=== PATIENT | female | born 1990 | race American Indian/Alaskan Native ===

== ENCOUNTER 2018-05-12 19:10 | Emergency (ER) | payer SELFPAY ==
[2018-05-12 19:56] VITALS: BP 146/102
[2018-05-12 22:57] LABS: Bacteria,Urine 4+ /HPF (Negative); Bilirubin,Urine NEG (Negative); Blood,Urine NEG (Negative); Color,Urine Amber (Yellow); Hyaline Casts,Urine 20 /LPF; Mucus,Urine 3+ /HPF; Sperm,Urine 2+ /HPF (NP); Urobilinogen,Urine < 2.0 mg/dL (<2.0)
--- NOTE | 2018-05-13 00:33 | Emergency Department Report ---
ED Female HPI - General Chief complaint: Urogenital-Female Stated complaint: VAGINAL BURNING Time Seen by Provider: 05/12/18 23:49 Source: patient Mode of arrival: Ambulatory Limitations: No Limitations - History of Present Illness Initial comments: Patient is a 28-year-old female who presents to ED complaining of burning with urination and vaginal discharge 3 days. Patient states that it has become painful to urinate due to the burning sensation whenever she urinates. She admits vaginal discharge and vaginal H and area she describes that she discharge as thick and clumpy. Patient reports that she has irregular cycles of the past 10 years. She denies pelvic pain, fever, abdominal pain, nausea vomiting. Patient states that she is eversion and has not had sexual intercourse so she is not worried about STDs. MD Complaint: vaginal discharge - Related Data Previous Rx's Medication Instructions Recorded Last Taken Type Fluconazole [Diflucan] 150 mg PO DAILY #2 tablet 05/13/18 Unknown Rx Sulfamethoxazole/Trimethoprim 1 each PO BID #14 tablet 05/13/18 Unknown Rx [Bactrim DS TAB] metroNIDAZOLE [Metronidazole] 500 mg PO ONCE #4 tablet 05/13/18 Unknown Rx Allergies Allergy/AdvReac Type Severity Reaction Status Date / Time perfum soap Allergy Rash Uncoded 05/12/18 19:21 ED Review of Systems ROS: Stated complaint: VAGINAL BURNING Other details as noted in HPI Comment: All other systems reviewed and negative ED Past Medical Hx - Past Medical History Previous Medical History?: No - Surgical History Past Surgical History?: No - Social History Smoking Status: Never Smoker Substance Use Type: None - Medications Home Medications: Home Medications Medication Instructions Recorded Confirmed Last Taken Type Fluconazole [Diflucan] 150 mg PO DAILY #2 tablet 05/13/18 Unknown Rx Sulfamethoxazole/Trimethoprim 1 each PO BID #14 tablet 05/13/18 Unknown Rx [Bactrim DS TAB] metroNIDAZOLE [Metronidazole] 500 mg PO ONCE #4 tablet 05/13/18 Unknown Rx ED Physical Exam - General Limitations: No Limitations General appearance: alert, in no apparent distress - Head Head exam: Present: atraumatic, normocephalic - Eye Eye exam: Present: normal appearance - ENT ENT exam: Present: mucous membranes moist - Neck Neck exam: Present: normal inspection - Respiratory Respiratory exam: Present: normal lung sounds bilaterally. Absent: respiratory distress - Cardiovascular Cardiovascular Exam: Present: regular rate, normal rhythm. Absent: systolic murmur, diastolic murmur, rubs, gallop - GI/Abdominal GI/Abdominal exam: Present: soft, normal bowel sounds - Extremities Exam Extremities exam: Present: normal inspection - Back Exam Back exam: Present: normal inspection - Neurological Exam Neurological exam: Present: alert, oriented X3 - Psychiatric Psychiatric exam: Present: normal affect, normal mood - Skin Skin exam: Present: warm, dry, intact, normal color. Absent: rash ED Course Vital Signs 05/12/18 05/12/18 19:54 20:00 Temperature 98.7 F 98.7 F Pulse Rate 83 83 Respiratory 16 16 Rate Blood Pressure 146/102 146/102 O2 Sat by Pulse 94 97 Oximetry ED Medical Decision Making - Medical Decision Making 28-year-old female presents with vaginitis/UTI Urinalysis positive for bacteria, yeast, leukocyte esterase, and elevated white count Discussed this findings with the patient. Discussed the patient is begun on on antibiotics as well as treatment for yeast infection. Discussed the patient follow-up with the [facility] [employer]. Vital signs are normal patient is in no acute distress Critical care attestation.: If time is entered above; I have spent that time in minutes in the direct care of this critically ill patient, excluding procedure time. ED Disposition Clinical Impression: UTI (urinary tract infection), Vulvovaginal candidiasis Disposition: TO HOME OR SELFCARE Is pt being admited?: No Does the pt Need Aspirin: No Condition: Stable Instructions: Vulvovaginal Candidiasis (ED), Vaginitis (ED), Urinary Tract Infection in Women (ED) Additional Instructions: Make sure to follow up with the primary care physician as discussed. Take all your medications as you've been prescribed. If you have any worsening symptoms or develop new symptoms please return to ED immediately. Prescriptions: Sulfamethoxazole/Trimethoprim [Bactrim DS TAB] 1 each PO BID #14 tablet Fluconazole [Diflucan] 150 mg PO DAILY #2 tablet metroNIDAZOLE [Metronidazole] 500 mg PO ONCE #4 tablet Referrals: JAKOB HEARN MD [Primary Care Provider] - 3-5 Days Forms: Accompanied Note, Work/School Release Form(ED) Time of Disposition: 00:41
== END 2018-05-13 00:50 | disposition home or self-care (01) ==
LOC: ED 19:10
DX: N39.0 Urinary tract infection, site not specified (principal); B37.3 Candidiasis of vulva and vagina; Z91.89 Other specified personal risk factors, not elsewhere classified
CPT/HCPCS: 81001; 99283

== ENCOUNTER 2018-11-27 18:34 | Emergency (ER) | payer SELFPAY ==
[2018-11-27 19:14] VITALS: BP 175/93
--- NOTE | 2018-11-27 20:33 | Emergency Department Report ---
ED General Adult HPI - General Chief complaint: Dental/Oral Stated complaint: POSS STROKE Time Seen by Provider: 11/27/18 20:16 Source: patient Mode of arrival: Ambulatory Limitations: No Limitations - History of Present Illness Initial comments: Patient is a 28-year-old female who presents to the emergency room with complaints of left facial droop that began 4 days ago. Patient states that before the droop. She felt a tingling sensation on the left side of her tongue but that has since resolved. Patient states that approximately 2 weeks ago she had cough and cold symptoms that self resolved. She states that she also has left lower toothache from where she cracked her tooth a couple weeks ago. Patient denies any fever, chills, nausea, vomiting, vision changes, numbness, unilateral weakness, WELSH. Patient's sister states she has a past medical history of mild developmental disability. denies any allergies to medications. - Related Data Previous Rx's Medication Instructions Recorded Last Taken Type Fluconazole [Diflucan] 150 mg PO DAILY #2 tablet 05/13/18 Unknown Rx Sulfamethoxazole/Trimethoprim 1 each PO BID #14 tablet 05/13/18 Unknown Rx [Bactrim DS TAB] metroNIDAZOLE [Metronidazole] 500 mg PO ONCE #4 tablet 05/13/18 Unknown Rx predniSONE [Deltasone] 60 mg PO QDAY 7 Days #21 tab 11/27/18 Unknown Rx valACYclovir [Valtrex] 1,000 mg PO TID 7 Days #42 tab 11/27/18 Unknown Rx Allergies Allergy/AdvReac Type Severity Reaction Status Date / Time perfum soap Allergy Rash Uncoded 05/12/18 19:21 ED Review of Systems ROS: Stated complaint: POSS STROKE Other details as noted in HPI Comment: All other systems reviewed and negative ED Past Medical Hx - Past Medical History Previous Medical History?: Yes Additional medical history: Morbid Obesity - Surgical History Past Surgical History?: No - Social History Smoking Status: Never Smoker Substance Use Type: None - Medications Home Medications: Home Medications Medication Instructions Recorded Confirmed Last Taken Type Fluconazole [Diflucan] 150 mg PO DAILY #2 tablet 05/13/18 Unknown Rx Sulfamethoxazole/Trimethoprim 1 each PO BID #14 tablet 05/13/18 Unknown Rx [Bactrim DS TAB] metroNIDAZOLE [Metronidazole] 500 mg PO ONCE #4 tablet 05/13/18 Unknown Rx predniSONE [Deltasone] 60 mg PO QDAY 7 Days #21 tab 11/27/18 Unknown Rx valACYclovir [Valtrex] 1,000 mg PO TID 7 Days #42 tab 11/27/18 Unknown Rx ED Physical Exam - General Limitations: No Limitations General appearance: alert, in no apparent distress - Head Head exam: Present: atraumatic, normocephalic - Eye Eye exam: Present: normal appearance, PERRL, EOMI - ENT ENT exam: Present: normal orophraynx, mucous membranes moist, other (cracked molar on the left lower jaw, no induration, no gum inflammation, no sign of dental abscess, uvula is midline, no uvular edema, no facial edema) - Respiratory Respiratory exam: Present: normal lung sounds bilaterally. Absent: respiratory distress, rales, rhonchi, stridor, chest wall tenderness, accessory muscle use, decreased breath sounds, prolonged expiratory - Cardiovascular Cardiovascular Exam: Present: regular rate, normal rhythm, normal heart sounds. Absent: systolic murmur, diastolic murmur, rubs, gallop - Neurological Exam Neurological exam: Present: alert, oriented X3, normal gait, other (left sided mouth droop, unable to raise the left eyebrow, unable to wrinkle the left forehead, unable to fully close the left eye, sensation intact, normal finger to nose, normal heel to weldon, equal videotape recording engineer strength, 5/5 strength in the BUE/BLE) - Psychiatric Psychiatric exam: Present: normal affect, normal mood - Skin Skin exam: Present: warm, dry, intact. Absent: rash ED Course Vital Signs 11/27/18 19:11 Temperature 98.5 F Pulse Rate 93 H Respiratory 18 Rate Blood Pressure 175/93 O2 Sat by Pulse 95 Oximetry ED Medical Decision Making - Medical Decision Making Patient is a 28-year-old female who presents to the emergency room with complaints of left facial droop that began 4 days ago. Patient states that before the droop. She felt a tingling sensation on the left side of her tongue but that has since resolved. Patient states that approximately 2 weeks ago she had cough and cold symptoms that self resolved. She states that she also has left lower toothache from where she cracked her tooth a couple weeks ago. Patient denies any fever, chills, nausea, vomiting, vision changes, numbness, unilateral weakness, WELSH. Patient's sister states she has a past medical history of mild developmental disability. denies any allergies to medications. vitals with elevated blood pressure otherwise normal, discussed blood pressure with pts sister and advised for her to be seen by a primary care provider, keep a blood pressure log, and eat a low sodium diet. on examination: cracked molar on the left lower jaw, no induration, no gum inflammation, no sign of dental abscess, uvula is midline, no uvular edema, no facial edema, left sided mouth droop, unable to raise the left eyebrow, unable to wrinkle the left forehead, unable to fully close the left eye, sensation intact, normal finger to nose, normal heel to weldon, equal videotape recording engineer strength, 5/5 strength in the BUE/BLE. examination consistent with bells palsy as pt has forehead involvement which is in the distribution of the facial nerve. given prescription for valcyclovir and prednisone. advised pt and pt sisters to please take medication as prescribed. Please follow up with a primary care doctor and dentist in the next 3-5 days. given list of community resources. please use eye drops in the eye to keep well lubricated. may tape the eye shut just at night if eye begins drying. return to the emergency room for any new or worsening symptoms. - Differential Diagnosis Bowers Palsy, CVA, encephalitis, TIA, shingles Critical care attestation.: If time is entered above; I have spent that time in minutes in the direct care of this critically ill patient, excluding procedure time. ED Disposition Clinical Impression: Junior's palsy, Cracked tooth Disposition: [id number] TO HOME OR SELFCARE Is pt being admited?: No Does the pt Need Aspirin: No Condition: Stable Instructions: Junior Palsy (ED), Toothache (ED) Additional Instructions: Please take medication as prescribed. Please follow up with a primary care doctor and dentist in the next 3-5 days. given list of community resources. please use eye drops in the eye to keep well lubricated. may tape the eye shut just at night if eye begins drying. return to the emergency room for any new or worsening symptoms. Prescriptions: predniSONE [Deltasone] 60 mg PO QDAY 7 Days #21 tab valACYclovir [Valtrex] 1,000 mg PO TID 7 Days #42 tab Referrals: [facility] [Outside] - 3-5 Days [facility] [Provider Group] - 3-5 Days [facility] [Outside] - 3-5 Days [facility] [Outside] - 3-5 Days Time of Disposition: 20:34 Print Language: SETSWANA
== END 2018-11-27 21:24 | disposition home or self-care (01) ==
LOC: ED 18:34
DX: G51.0 Bell's palsy (principal); K03.81 Cracked tooth; E66.01 Morbid (severe) obesity due to excess calories; Z91.048 Other nonmedicinal substance allergy status
CPT/HCPCS: 99282